=== PATIENT | male | born 1985 | race African-American/Black ===

== ENCOUNTER 2017-01-28 22:03 | Emergency (ER) | payer MEDICAID ==
[~2017-01-28] VITALS: Ht 172.7 cm; Wt 76.0 kg
[2017-01-28] MEDS ORDERED: ACETAMINOPHEN 325MG TABLET PO ONE (23:30)
[2017-01-29] MEDS ORDERED: BACITRACIN ZINC OINT UDPKT TOP ONE (00:30)
[2017-01-29 01:00] VITALS: BP 131/79
== END 2017-01-29 01:10 | disposition home or self-care (01) ==
LOC: ER 22:03
DX: S09.90XA Unspecified injury of head, initial encounter (principal); S70.352A Superficial foreign body, left thigh, initial encounter; M54.2 Cervicalgia; M54.9 Dorsalgia, unspecified; F17.200 Nicotine dependence, unspecified, uncomplicated; F12.10 Cannabis abuse, uncomplicated; W18.30XA Fall on same level, unspecified, initial encounter; Y93.89 Activity, other specified; Y92.89 Other specified places as the place of occurrence of the external cause; Y99.8 Other external cause status
CPT/HCPCS: 70450; 72125; 99284; X7700; Z7610